=== PATIENT | male | born 1995 | race Caucasian/White ===

== ENCOUNTER 2020-06-19 12:40 | Emergency (ER) | payer SELFPAY ==
[2020-06-19 13:04] VITALS: BP 137/90; PULSE 65; RESP 17; TEMP 36; O2SAT 98; BMI 28.5
--- NOTE | 2020-06-19 13:14 | XR_ITS ---
WS: [id number] Left foot, 3 views, 06/19/2020 Clinical Data: trauma Comparison: None. Findings: No dislocations are seen. No bone destruction or erosion is noted. The joint spaces and soft tissues are normal. There is a calcification medial to the head of the left first metatarsal. This could represent a smal l cortical avulsion fracture. XR/XR foot LT min 3V* 33483 Impression: Small fragment adjacent to medial aspect of the left first metatarsal which cou ld represent a small cortical fracture. Recommend repeat left foot x-ray in 8-1 0 days.
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
--- NOTE | 2020-06-19 13:24 | PC.NURSE ---
Radiology at bedside
[2020-06-19 14:01] VITALS: BP 148/100; PULSE 100; RESP 17; O2SAT 98
--- NOTE | 2020-06-19 14:27 | DCPLANNER ---
industrial production manager had message to schedule a follow up appointment for patient with ortho. industrial production manager called the ortho clinic, spoke with Nara, gave clinic patients information. industrial production manager was told that patients information would be printed and reviewed. Clinic will call patient with appointment information.
--- NOTE | 2020-06-24 07:56 | DCPLANNER ---
Patient had a follow up appointment scheduled with ortho on 06.23.20 - patient did not attend the appointment.
== END 2020-06-19 14:02 | disposition home or self-care (01) ==
PROVIDERS: Emergency Provider Physician Assistant
DX: S92.315A Nondisplaced fracture of first metatarsal bone, left foot, initial encounter for closed fracture (principal); Y04.8XXA Assault by other bodily force, initial encounter
CPT/HCPCS: 12345; 73630; 99282

== ENCOUNTER → 2020-07-20 13:32 | Outpatient (BNVA) | payer OTHER, SELFPAY | PROVIDERS: Visit Provider Nurse Practitioner Family | DX: Z11.59 Encounter for screening for other viral diseases (principal); J06.9 Acute upper respiratory infection, unspecified | CPT/HCPCS: 87635 ==

== ENCOUNTER → 2020-10-14 12:05 | Outpatient (BNVA) | payer SELFPAY | PROVIDERS: Visit Provider Nurse Practitioner Family | DX: J06.9 Acute upper respiratory infection, unspecified (principal); Z11.59 Encounter for screening for other viral diseases | CPT/HCPCS: 87635 ==